=== PATIENT | female | born 1945 | race Two or more races ===

== ENCOUNTER 2017-12-24 08:30 | Outpatient (CLI) | payer OTHER ==
[~2017-12-24 08:30] MED LIST: AMLODIPINE BESYL5 MG; AVAPRO300 MG; AVAPRO300 MG PO; ECOTRIN81 MG; GABAPENTIN100 MG PO; LEVO-T25 MCG PO; PREVENT SOFTGEL1 CAP; SENNA8.6 MG; TAMOXIFEN CITRA20 MG; TENORMIN50 M1; TOPROL XL50 M1 PO; TRAMADOL HCL50 MG PO; TYLENOL325 MG PO; ZANTAC300 MG; ZOCOR40 MG
== END 2017-12-24 09:00 | disposition home or self-care (01) ==
LOC: NUCLEAR 08:30
DX: C50.911 Malignant neoplasm of unspecified site of right female breast (principal); C79.89 Secondary malignant neoplasm of other specified sites; C79.51 Secondary malignant neoplasm of bone
CPT/HCPCS: 78815; A9552